=== PATIENT | female | born 1950 | race Caucasian/White ===

== ENCOUNTER 2016-08-09 19:46 | Emergency (ER) | payer MEDICARE, OTHER ==
--- NOTE | ~2016-08-09 | EKG ---
PATIENT: ALEIDA KENT UNIT #: [id number] Ventricular Rate: 67 BPM Atrial Rate: 67 BPM P-R Interval: 160 ms QRS Duration: 84 ms Q-T Interval: 376 ms QTC Calculation(Bezet): 397 ms P [place]: 24 degrees Calculated R [place]: 11 degrees Calculated T [place]: 15 degrees Diagnosis Line: Normal sinus rhythm Diagnosis Line: Minimal voltage criteria for LVH, may be normal Diagnosis Line: variant Diagnosis Line: Cannot rule out Anterior infarct , age Diagnosis Line: undetermined Diagnosis Line: Abnormal ECG Diagnosis Line: When compared with ECG of 28-NOV-2011 10:46, Diagnosis Line: No significant change was found Diagnosis Line: Confirmed by KELLEY FUENTES MD ([id number]) on Diagnosis Line: 08/13/2016 3:55:37 PM INTERPRETING MD: GINA PALOMARES
--- NOTE | ~2016-08-09 | CT52 ---
[facility] A Service of [facility] & [facility] RADIOLOGY TEXT RESULTS PATIENT: ALEIDA KENT LOCATION: [facility] [facility] : 51 UNIT #: [id number] AGE: [address]: Chino Ortiz MD SEX: F ORDER DR: [id number] [facility] [address] [place], [place] [address] [id number] E MR#: [id number] Acc #: [id number] NAME: ALEIDA KENT. : 1950 SEX: F STUDY DATE/TIME: 08/09/2016 20:03 UNIT: [facility] ROOM: STUDY DESCRIPTION: CT Cervical Spine Wo Cont Attending Physician: Chino Ortiz M.D. Ordering Physician: Chino Ortiz M.D. Primary Care Physician: Adrianne Cruz A.P.R.N. MEDICAL IMAGING REPORT This report is preliminary unless electronic signature is present EXAM CT cervical spine 08/09/2016 HISTORY Nausea, vomiting, diarrhea, chest pain left side, status post right cornea transplant 4 days ago. Vertigo, headache onset today. Neck pain [address] cervical spine performed. Bone and soft tissue windows are reviewed. Sagittal and coronal reconstructions were performed. No prior cervical spine CT for comparison. This CT exam was performed with one or more of the following radiation dose reduction techniques: automatic exposure control, adjustment of mA and/or kV according to patient size, and iterative reconstruction. FINDINGS Visualized portions of brain unremarkable. Visualized paranasal sinuses and mastoid air cells clear. Paraspinal soft tissues notable for carotid arterial calcifications. The lung apices are clear. Visualized superior mediastinum unremarkable. No adenopathy. Cervical spine alignment normal in frontal projection. On the sagittal images, there is grade 1 2 mm anterolisthesis C3 on C4 and 2 mm grade 1 anterolisthesis C6 on C7 likely due to disc and facet degenerative changes at these levels. Vertebral body heights are normal. Marked intervertebral disc space narrowing at C4-C5. Moderate disc space narrowing C5-C6, C6-C7. Marked disc space narrowing T1-T2. Facet joint relationships normal. Ecfe-xg-mkbpgihh generalized facet degenerative changes. No fracture. C2-C3: Small posterior disc bulge. No spinal stenosis. The neural foramina are patent without evidence of exiting nerve impingement. [facility] A Service of [facility] & [facility] RADIOLOGY TEXT RESULTS PATIENT: ALEIDA KENT LOCATION: [facility] : 51 UNIT #: [id number] AGE: [address]: Chino Ortiz MD SEX: F ORDER DR: C3-C4: Anterolisthesis with associated minimal disc bulge. Narrowing anterior thecal spaces. Probable anterior central and right paracentral cord contact. Mild central spinal canal narrowing. Neural foramina show moderate bilateral foraminal narrowing, right greater than left. Exiting right nerve irritation is a consideration. C4-C5: Posterior disc osteophyte complex more pronounced in the central and right paracentral region. Anterior cord contact. Effacement anterior cord contour. Mild central and right paracentral spinal canal narrowing. Uncovertebral degenerative changes. Moderate right and mild left foraminal narrowing. C5-C6: Posterior concentric disc osteophyte complex. Narrowing anterior thecal space but no cord contact. Minimal central spinal canal narrowing. Right greater than left uncovertebral degenerative changes. Moderate right and mild left foraminal narrowing. C6-C7: Anterolisthesis as noted. No disc bulge or herniation. No significant spinal canal narrowing. Neural foramina are patent without evidence of exiting nerve impingement. C7-T1, T1-T2: Mild bilateral foraminal narrowing T1-T2 due to uncovertebral degenerative changes. T2-T3, T3-T4, unremarkable in visualized extent. IMPRESSION 1. No traumatic fracture or malalignment. 2. Degenerative changes in the cervical spine. Please see complete tubri-zn-[id number] descriptions in body of report above. Degenerative grade 1 anterolisthesis of about 2 mm at C3 on C4 and C6 on C7. 3. Multilevel degenerative changes probably most pronounced overall at the C4-C5 level with posterior disc osteophyte complex more pronounced centrally in the right paracentral region with anterior cord contact and central and right paracentral cord effacement. Coii-ls-hqvh/moderate central and right paracentral spinal canal narrowing. 4. Multilevel facet and uncovertebral degenerative changes yielding multilevel foraminal narrowing in general more pronounced on right than left. See details in body of report above. 5. No acute paraspinal soft tissue abnormality. Note made of carotid arterial calcifications. Correlate clinically. Consider further assessment with elective carotid ultrasound. Dictated by... Brooks Vega M.D. THIS IS AN ELECTRONICALLY VERIFIED REPORT [facility] A Service of [facility] RADIOLOGY TEXT RESULTS PATIENT: ALEIDA KENT [id number] UNIT #: [id number] AGE: [address]: Chino Ortiz MD SEX: F ORDER DR: Brooks Vega M.D. at 08/10/2016 8:22 PM OLGA/venecia TD: 08/10/2016 14:35 JOB #: [id number] MEDICAL IMAGING REPORT COPY
--- NOTE | ~2016-08-09 | CR72 ---
[facility] A Service of [facility] & [facility] RADIOLOGY TEXT RESULTS PATIENT: ALEIDA KENT LOCATION: [facility] : 51 UNIT #: [id number] AGE: [address]: Chino Ortiz MD SEX: F ORDER DR: [id number] [facility] [address] [place], [place] [address] [id number] E MR#: [id number] Acc #: [id number] NAME: ALEIDA KENT : 1950 SEX: F STUDY DATE/TIME: 08/09/2016 20:21 UNIT: [facility] ROOM: STUDY DESCRIPTION: CR Chest Single View Portable Attending Physician: Chino Ortiz M.D. Ordering Physician: Chino Ortiz M.D. Primary Care Physician: Adrianne Cruz A.P.R.N. MEDICAL IMAGING REPORT This report is preliminary unless electronic signature is present EXAM Portable chest, 08/09/2016. INDICATIONS Chest pain starting today. COMPARISON 11/28/2011. FINDINGS A portable view of the chest was obtained. The heart size and vascularity are normal and the lungs are clear and the bones are unremarkable. IMPRESSION No active disease. Dictated by... Mayo North M.D. THIS IS AN ELECTRONICALLY VERIFIED REPORT Mayo North M.D. at 08/10/2016 4:32 PM FEL/alessio TD: 08/10/2016 14:11 JOB #: [id number] MEDICAL IMAGING REPORT COPY
--- NOTE | ~2016-08-09 | CT71 ---
[facility] A Service of [facility] & [facility] RADIOLOGY TEXT RESULTS PATIENT: ALEIDA KENT LOCATION: [facility] : 52 UNIT #: [id number] AGE: [address]: Chino Ortiz MD SEX: F ORDER DR: [id number] [facility] [address] [place], [place] [address] [id number] E MR#: [id number] Acc #: [id number] NAME: ALEIDA KENT. : 1950 SEX: F STUDY DATE/TIME: 08/09/2016 20:32 UNIT: [facility] ROOM: STUDY DESCRIPTION: CT Head Wo Contrast Attending Physician: Chino Ortiz M.D. Ordering Physician: Chino Ortiz M.D. Primary Care Physician: Adrianne Cruz A.P.R.N. MEDICAL IMAGING REPORT This report is preliminary unless electronic signature is present EXAM Head CT, no contrast, 08/09/2016. PROCEDURE Axial unenhanced head CT. This CT exam was performed with one or more of the following radiation dose reduction techniques: automatic exposure control, adjustment of mA and/or kV according to patient size, and iterative reconstruction. COMPARISON None. CLINICAL HISTORY Vertigo and headache for 1 day. FINDINGS There is no intracranial hemorrhage or mass. There is no hydrocephalus or extraaxial fluid collection. Brain parenchymal density is normal. The extracranial soft tissues are normal. The skull base and calvarium are unremarkable, except for slight ethmoid mucosal thickening. IMPRESSION Slightly ethmoid mucosal thickening, otherwise normal negative unenhanced head CT. Dictated by... Nestor Milligan M.D. THIS IS AN ELECTRONICALLY VERIFIED REPORT Nestor Milligan M.D. at 08/12/2016 4:33 PM TEV/pc [facility] A Service of [facility] & [facility] RADIOLOGY TEXT RESULTS PATIENT: ALEIDA KENT LOCATION: [facility] : 51 UNIT #: [id number] AGE: [address]: Chino Ortiz MD SEX: F ORDER DR: TD: 08/10/2016 14:22 JOB #: [id number] MEDICAL IMAGING REPORT COPY
[~2016-08-09 19:46] MED LIST: ADVAIR 100-501 EACH INH; ADVAIR 250-501 EACH; ADVAIR 250-501 EACH IH; ADVAIR 250-501 EACH INH; ALBUTEROL17 G1 INH; ASPIRIN81 M2 PO; FLEXERIL10 M1 PO; GLYBURIDE2.5 M1 PO; IBUPROFEN; IRON325 ( 651 PO; LISINOPRIL5 MG PO; LORTAB 5/500 TA1 TA1 PO; MEDROL DOSEPAK4 MG DOB; MEDROL4 MG/DOSE- PO; MELOXICAM15 MG PO; METFORMIN HCL500 M1 PO; METFORMIN PO; MICRONASE5 M2 PO; OMEPRAZOLE20 M2 PO; OMEPRAZOLE40 M1 PO; PROAIR HFA8.5 GM IH; PROAIR HFA8.5 GM INH; VITAMIN D400 UNI2 PO; ZESTRIL2.5 M1 PO
[2016-08-09 19:54] LABS: URINE SOURCE CLEAN CATCH
[2016-08-09 20:02] LABS: URINE APPEARANCE CLEAR; URINE BILIRUBIN NEG (NEG); URINE BLOOD NEG (NEG); URINE COLOR YELLOW; URINE GLUCOSE NEG (NEG); URINE KETONE NEG (NEG); URINE LEUKOCYTE ESTERASE TRACE (NEG); URINE NITRATE NEG (NEG); URINE PROTEIN NEG (NEG); URINE SPECIFIC GRAVITY 1.017 (1.003-1.035); URINE UROBILINOGEN 0.2 MG/DL (NEG)
[2016-08-09 20:05] LABS: CULTURE INDICATED? NO; U HYALINE CASTS AUWI 0-2 /[LPF]; URBCS1 AUWI 0-2 /[HPF] (0-2); URINE BACTERIA AUWI NEG (NEGATIVE); URINE SQUAMOUS EPITHELIAL CELL NONE SEEN /[HPF]
[2016-08-09 20:22] LABS: BASOPHIL# 0.1 X10e3 (0-0.3); BASOPHIL% 1.1 % (0-2.5); EOSINOPHIL# 0.6 X10e3 (0-0.7); EOSINOPHIL% 6.3 % (0.0-7.0); HEMATOCRIT 37.6 % (35.0-45.0); HEMOGLOBIN 12.5 gm/dL (12.0-16.0); LYMPHOCYTE# 2.7 X10e3 (1.0-3.5); LYMPHOCYTE% 31.3 % (17.0-45.0); MEAN CELL VOLUME 89.3 FL (83-96); MEAN CORPUSCULAR HEMOGLOBIN 29.6 PG (28-34); MEAN CORPUSCULAR HGB CONC 33.2 g/dL (30-36); MEAN PLATELET VOLUME 7.1 FL (6.5-11.5); MONOCYTE# 0.6 X10e3 (0-1.0); MONOCYTE% 6.9 % (3.0-12.0); NEUTROPHIL# 4.7 X10e3 (1.5-7.1); NEUTROPHIL% 54.4 % (40-75); PLATELET COUNT 325 X10e3 (140-420); RED BLOOD COUNT 4.21 X10e (3.90-5.30); RED CELL DISTRIBUTION WIDTH 13.3 % (11.0-15.5); WHITE BLOOD COUNT 8.7 X10e3 (4.0-10.5)
[2016-08-09 20:26] LABS: DIFF IND NO
[2016-08-09 20:40] LABS: POC - CKMB <1.0 ng/mL (0.0-7.9); POC - TROPONIN <0.05 ng/mL (<=0.05)
[2016-08-09 20:45] LABS: ALBUMIN SERUM 3.8 g/dL (3.5-5.0); ALKALINE PHOSPHATASE 60 U/L (32-92); ALT (SGPT) 22 U/L (10-40); AST (SGOT) 15 U/L (10-42); BILIRUBIN, DIRECT 0.1 mg/dL (0.0-0.2); BILIRUBIN,INDIRECT 0.3 mg/dL (0.0-0.9); BILIRUBIN,TOTAL 0.4 mg/dL (0.2-2.0); BLOOD UREA NITROGEN 16 mg/dL (9-23); BUN/CREATININE RATIO 22.85; CALCIUM SERUM 8.8 mg/dL (8.4-10.2); CARBON DIOXIDE 27 mmol/L (22-31); CHLORIDE 107 mmol/L (100-111); CREATININE SERUM 0.7 mg/dL (0.6-1.4); GLOM FILT RATE Estimated ABOVE60 mL/min (>60); GLUCOSE FASTING 108 mg/dL (70-110); LIPASE 29 U/L (22-51); POTASSIUM 4.1 mmol/L (3.5-5.1); PROTEIN TOTAL SERUM 6.8 g/dL (6.0-8.3); SODIUM 137 mmol/L (135-145)
[2016-08-09 22:02] LABS: POC - CKMB <1.0 ng/mL (0.0-7.9); POC - TROPONIN <0.05 ng/mL (<=0.05)
== END 2016-08-09 22:10 | disposition home or self-care (01) ==
LOC: CED 19:46
PROVIDERS: Emergency Medicine
DX: S16.1XXA Strain of muscle, fascia and tendon at neck level, initial encounter (principal); R51 Headache; R07.9 Chest pain, unspecified; I10 Essential (primary) hypertension; E11.9 Type 2 diabetes mellitus without complications; F17.210 Nicotine dependence, cigarettes, uncomplicated; Z90.49 Acquired absence of other specified parts of digestive tract; X58.XXXA Exposure to other specified factors, initial encounter
CPT/HCPCS: 36415; 70450; 71010; 72125; 80048; 80076; 81003; 82553; 83690; 84484; 85025; 93005; 99284

== ENCOUNTER → 2016-09-04 | Outpatient (CLI) | payer MEDICARE, OTHER ==
[2016-09-04 15:35] LABS: HEMATOCRIT 40.1 % (35.0-45.0); HEMOGLOBIN 13.5 gm/dL (12.0-16.0); MEAN CELL VOLUME 88.8 FL (83-96); MEAN CORPUSCULAR HEMOGLOBIN 29.8 PG (28-34); MEAN CORPUSCULAR HGB CONC 33.6 g/dL (30-36); MEAN PLATELET VOLUME 6.9 FL (6.5-11.5); RED BLOOD COUNT 4.52 X10e (3.90-5.30); RED CELL DISTRIBUTION WIDTH 13.9 % (11.0-15.5); WHITE BLOOD COUNT 8.8 X10e3 (4.0-10.5)
[2016-09-04 15:57] LABS: ALBUMIN SERUM 4.4 g/dL (3.5-5.0); BILIRUBIN,TOTAL 0.9 mg/dL (0.2-2.0); BUN/CREATININE RATIO 17.14; CALCIUM SERUM 9.6 mg/dL (8.4-10.2); CREATININE SERUM 0.7 mg/dL (0.6-1.4); GLOM FILT RATE Estimated 90.9 mL/min (>60); PROTEIN TOTAL SERUM 7.7 g/dL (6.0-8.3)
== END | disposition home or self-care (01) ==
LOC: CLAB 15:15
PROVIDERS: Nurse Practitioner
DX: K92.1 Melena (principal); R63.4 Abnormal weight loss
CPT/HCPCS: 80053; 85027

== ENCOUNTER → 2016-09-11 | Outpatient (CLI) | payer MEDICARE, OTHER | END | disposition home or self-care (01) | LOC: CRAD 09:29 | DX: R13.10 Dysphagia, unspecified (principal); R63.4 Abnormal weight loss; K92.1 Melena | CPT/HCPCS: 74230; 92611; G8996-GN; G8997-GN; G8998-GN ==

== ENCOUNTER → 2016-10-03 | Outpatient (CLI) | payer MEDICARE, OTHER ==
--- NOTE | ~2016-10-03 | MY11 ---
[facility] A Service of [facility] RADIOLOGY TEXT RESULTS PATIENT: ALEIDA KENT LOCATION: [facility] : 51 UNIT #: [id number] AGE: [address]: Adrianne Cruz APRN SEX: F ORDER DR: [id number] [id number] [place], [place] [address] [id number] O MR#: [id number] Acc #: [id number] NAME: ALEIDA KENT. : 1950 SEX: F STUDY DATE/TIME: 10/03/2016 9:19 UNIT: [facility] ROOM: STUDY DESCRIPTION: MY Mammogram Screening Dig Itz Attending Physician: Adrianne Cruz A.P.R.N. Ordering Physician: Adrianne Cruz A.P.R.N. Primary Care Physician: Adrianne Cruz A.P.R.N. MEDICAL IMAGING REPORT This report is preliminary unless electronic signature is present EXAM Bilateral digital screening with CAD HISTORY Routine screening. No current complaints. No family history of breast cancer. COMPARISON 10/02/2015, 09/26/2014, 06/28/2014. FINDINGS MLO and CC digital views of each breast were obtained with 2D technique and reviewed with an FDA-approved CAD. Breasts are heterogenously dense. There are no masses or abnormal calcifications. There has been no change. IMPRESSION No change. No evidence of malignancy. Patient's over the age of 40 are entered into a reminder system with target due date for the next mammogram. BIRADS: 1 Negative Dictated by... Mayo North M.D. THIS IS AN ELECTRONICALLY VERIFIED REPORT Mayo North M.D. at 10/03/2016 1:53 PM JOSE/venecia TD: 10/03/2016 13:26 JOB #: [id number] [facility] A Service of [facility] RADIOLOGY TEXT RESULTS PATIENT: ALEIDA KENT LOCATION: [facility] : 52 UNIT #: [id number] AGE: [address]: Adrianne Cruz APRN SEX: F ORDER DR: MEDICAL IMAGING REPORT Page 1 of 1 COPY
== END | disposition home or self-care (01) ==
LOC: CWCC 09:13
DX: Z12.31 Encounter for screening mammogram for malignant neoplasm of breast (principal)
CPT/HCPCS: G0202